=== PATIENT | male | born 1985 | race Hispanic/Latino ===

== ENCOUNTER 2018-08-28 04:06 | Day surgery (SDC) | payer BC ==
[2018-08-28] MEDS ORDERED: Morphine 4 MG/ML VIAL ONE (06:00)
[2018-08-28] MEDS ORDERED: Ampicillin/Sulbactam 3 GM in Sodium Chloride 0.9% 100 ML IVPB ONE (09:15)
[2018-08-28] MEDS ORDERED: Bupivacaine/Epinephrine 0.25% 30 ML VIAL ONE (09:28)
[2018-08-28] MEDS ORDERED: Lidocaine 2% Jelly 5 ML TUBE ONE (09:31)
[2018-08-28] MEDS ORDERED: Fentanyl 100 MCG/2 ML VIAL ONE ×2 (09:31→10:54)
[2018-08-28] MEDS ORDERED: Midazolam HCl 2 mg/2 ml Vial ONE (09:31)
[2018-08-28] MEDS ORDERED: Succinylcholine Chloride 20 MG/ML 10 ml SYRINGE FS ONE (11:35)
[2018-08-28] MEDS ORDERED: Lidocaine 1% PF 5 ML VIAL ONE (11:35)
[2018-08-28] MEDS ORDERED: Glycopyrrolate 0.2 MG/ML 5 ML SYRINGE ONE (11:35)
[2018-08-28] MEDS ORDERED: Ondansetron PF 4 MG/2 ML Vial ONE (11:35)
[2018-08-28] MEDS ORDERED: PROPOFOL 200 MG/20 ML VIAL ONE (11:35)
[2018-08-28] MEDS ORDERED: Dexamethasone 20 MG/5 ML VIAL ONE (11:35)
--- NOTE | 2018-08-28 11:47 | OP ---
DATE OF PROCEDURE: 08/28/2018 PREOPERATIVE DIAGNOSIS: Acute appendicitis. POSTOPERATIVE DIAGNOSIS: Acute appendicitis. PROCEDURE: Laparoscopic appendectomy. SURGEON: Isaiah Valdez M.D. ANESTHESIA: General. ESTIMATED BLOOD LOSS: Minimal. COMPLICATIONS: None. SPECIMEN: Appendix. FINDINGS: Appendicitis. TECHNIQUE: The patient was taken to the operating room and placed supine on the table. After genera l anesthetic was obtained, a Gibson was placed. The abdomen was shaved, prepped and draped in sterile fashion. A curved incision was made below the umbilicus. Cautery was used to dissect down to and s core the fascia. Abdominal cavity entered bluntly using a Erin clamp. Holding stitch of PDS was pl aced on each side of the fascia. Ginny trocar was placed. High-flow pneumoperitoneum was obtained. Suprapubic 5-mm port and left lower quadrant 5-mm port were placed under direct visualizations. Th e cecum was rolled over to reveal acute appendicitis. A small window was made at the base of the oren endix and mesoappendix. Laparoscopic stapler was fired across the base of the appendix. A reload is fired across the mesoappendix. Appendix was placed in the catch bag and brought out through the Has luis. There is no bleeding in the abdomen along the staple lines. There is no evidence of injury to any intraabdominal structures. The abdomen was irrigated using sterile solution. There was no evide nce of perforation. All port sites were infiltrated using local anesthetic. All ports were removed under camera visualization. Pneumoperitoneum was let down. PDS was used to close the fascial defect below the umbilicus. All incisions were irrigated and closed using 4-0 Monocryl and Dermabond. The patient went to recovery room in stable condition. All instruments counts, needle counts and lap co unts were correct.
--- NOTE | 2018-08-28 12:08 | HP ---
DATE OF ADMISSION: 08/28/2018 CHIEF COMPLAINT: Right lower quadrant pain. HISTORY OF PRESENT ILLNESS: This is a 33-year-old male who presents with pain in the right lower patti drant since late last night, described as sharp, 8/10. No nausea or vomiting. No history of chronic abdominal pain. He was seen in the Emergency Department where he has been found to have acute appen dicitis. PAST MEDICAL HISTORY: He denies. PAST SURGICAL HISTORY: Denies. MEDICINES TAKEN DAILY: None. ALLERGIES: No known drug allergies. SOCIAL HISTORY: No smoking, alcohol or other drugs. REVIEW OF SYSTEMS: Ten system review of systems is otherwise negative unless described above. PHYSICAL EXAMINATION: CHEST: Clear. HEART: Regular rate and rhythm. ABDOMEN: Soft, tender right lower quadrant, localized guarding, no rebound, no abdominal or inguinal hernias. EXTREMITIES: No ischemia or edema to extremities. LABORATORY AND X-RAY FINDINGS: CT scan shows acute appendicitis. White blood cell count is 17. Cre atinine normal. ASSESSMENT: Acute appendicitis. PLAN: Laparoscopic appendectomy. Risks, benefits and alternatives discussed. They gave consent. Cris yip will do this today.
== END 2018-08-28 14:00 | disposition home or self-care (01) ==
LOC: ERS 04:06 → SDC 09:07
PROVIDERS: ATTEND Surgery
PROC: 0DTJ4ZZ Resection of Appendix, Percutaneous Endoscopic Approach (ICD-10-PCS; principal; 2018-08-28)
DX: K35.80 Unspecified acute appendicitis (principal)
CPT/HCPCS: 88304; 96374; J0295; J1100; J2001; J2250; J2270; J2405; J2704; J3010; J7050